=== PATIENT | male | born 1935 | race Caucasian/White ===

== ENCOUNTER → 2018-03-28 | Outpatient (CLI) | payer MEDICARE | END | disposition home or self-care (01) | LOC: SHCH 15:59 | PROVIDERS: ATTEND Internal Medicine Cardiovascular Disease | DX: R07.9 Chest pain, unspecified (principal); E11.9 Type 2 diabetes mellitus without complications; I10 Essential (primary) hypertension; E78.5 Hyperlipidemia, unspecified; Z87.891 Personal history of nicotine dependence; Z90.49 Acquired absence of other specified parts of digestive tract | CPT/HCPCS: 93306 ==

== ENCOUNTER → 2018-12-30 | Outpatient (CLI) | payer MEDICARE ==
--- NOTE | 2018-12-30 13:25 | NUR ---
MBSS COMPLETED. DEEP PENETRATION WITH NECTAR AND SHALLOW TRANSIENT PENETRATION WITH THIN LIQUIDS. RECOMMEND REGULAR TEXTURE, THIN LIQUIDS (SMALL CUP SIP); PILLS CRUSHED WITH APPLESAUCE. POCKET PRESENT IN POSTERIOR PHARYNGEAL WALL. PATIENT INFORMATION: Pt IS AN 83 YEAR OLD MALE REFERRED FOR A BEDSIDE DYSPHAGIA EVALUATION SECONDARY TO COMPLAINS OF DIFFICULTY SWALLOWING. Pt STATES THAT HE FEELS FOOD GET STUCK IN THROAT. Pt REPORTS THAT IN THE PAST HE HAD SIMILAR SYMPTOMS, BUT LOWER (POINTING TO THE ESOPHAGUS). Pt REPORTS THAT HE USUALLY DRINKS WATER AFTER MEALS AND HAS RECENTLY BEEN HAVING INCREASED DIFFICULTY WITH PILLS. IN ADDITION, Pt REPORTS INCREASED VOCAL HOARSENESS. Pt HAS A PAST MEDICAL HISTORY SIGNIFICANT FOR GERD, DMII, GASTRIC ULCERS, PROSTATE CANCER, HERNIA REPAIR, APPENDECTOMY. MBSS INTERPRETATION: Pt PRESENTS WITH MODERATE-SEVERE PHARYNGEAL DYSPHAGIA CAUSED BY DECREASED TONGUE BASE RETRACTION, DECREASED PRESSURE GENERATION WITHIN THE PHARYNX, POCKET IN POSTERIOR PHARYNGEAL WALL ([employer]-RADIOLOGIST CONFIRMATION), DELAYED PHARYNGEAL RESPONSE TIME EVIDENCED BY POCKETING IN POCKET IN POSTERIOR PHARYNGEAL WALL AT C6-C7 (CLEARED 50% OF BOLUS WITH LIQUID WAS AND DRY SWALLOW) WITH OVERFLOW INTO PHARYNX. RESULTING IN DEEP NON-TRANSIENT PENETRATION WITH NECTAR-THICK LIQUIDS AND TRANSIENT PENETRATION WITH THIN LIQUIDS VIA LARGE CUP SIP. OK WITH THIN LIQUIDS VIA SMALL CUP SIP. TRIALS: 1. TSP PUREED: POOLED IN POCKET IN POSTERIOR PHARYNGEAL WALL AT C6-C7. 2. CUP SIP THIN LIQUIDS: TRANSIENT PENETRATION; CLEARED 50% OF POOLED BOLUS 3. TSP PUDDING: POOLED IN POCKET IN POSTERIOR PHARYNGEAL WALL AT C6-C7. 4. TSP MIXED: POOLED IN POCKET IN POSTERIOR PHARYNGEAL WALL AT C6-C7. 5. CUP SIP THIN LIQUIDS: TRANSIENT PENETRATION; CLEARED 50% OF POOLED BOLUS 6. CUP SIP NECTAR-THICK LIQUIDS: DEEP NON-TRANSIENT PENETRATION 7. SMALL CUP SIP OF THIN LIQUIDS: GOOD. RECOMMENDATIONS: 1. REGULAR, THIN LIQUIDS: PILLS CRUSHED WITH APPLE SAUCE 2. COMPENSATORY STRATEGIES (STRICT): *SEATED AT 90 *SMALL BITES AND SIPS *NO STRAW *DRY SWALLOW AFTER LIQUID WASH *ALTERNATE BITES AND SIPS (STRICT) *REMAIN UPRIGHT 30 MINUTES AFTER THE MEAL *NO SCATTERED FOODS: NUTS, POPCORN, RICE, ETC (REVIEWED WITH Pt EXTENSIVELY) 3. ENT CONSULT SECONDARY TO POCKET IN POSTERIOR PHARYNGEAL WALL AT C6-C7 ([employer]) WINDOWS MIGRATION TECHNICIAN REVIEWED RESULTS AND RECOMMENDATIONS WITH Pt. WINDOWS MIGRATION TECHNICIAN EDUCATED Pt ON RISKS AND CONSEQUENCES OF ASPIRATION. WINDOWS MIGRATION TECHNICIAN EXPLAINED ANATOMY AND FINDINGS EXTENSIVELY. Pt PROVIDED WITH WRITTEN HANDOUT OF RESULTS AND RECOMMENDATIONS. PLEASE NOTE Pt'S BEST TEXTURE IS PUREED, WHICH WAS ALSO EXPLAINED. HE IS OK TO EAT SOLIDS, HOWEVER PUREED TEXTURES MAY BE WARRANTED AT A LATER TIME. HE VERBALIZED UNDERSTANDING AND COMPLIANCE WITH RECOMMENDATIONS. G-CODES SWALLOWING: [id number] Addendum: 12/30/18 at 1326 by COLIN PATTEN [facility] Amended: Links added.
== END | disposition home or self-care (01) ==
LOC: RAH 09:50
PROVIDERS: ATTEND Internal Medicine Gastroenterology
DX: R13.12 Dysphagia, oropharyngeal phase (principal); R63.3 Feeding difficulties
CPT/HCPCS: 74230; 92611; G8996; G8997; G8998

== ENCOUNTER 2019-03-30 09:38 | Emergency (ER) | payer MEDICARE | END 2019-03-30 13:35 | disposition home or self-care (01) | LOC: EDH 09:38 | DX: S52.502A Unspecified fracture of the lower end of left radius, initial encounter for closed fracture (principal); I10 Essential (primary) hypertension; E11.9 Type 2 diabetes mellitus without complications; E78.5 Hyperlipidemia, unspecified; Z87.891 Personal history of nicotine dependence; Z88.8 Allergy status to other drugs, medicaments and biological substances; W18.39XA Other fall on same level, initial encounter; Y93.89 Activity, other specified; Y92.89 Other specified places as the place of occurrence of the external cause; Y99.8 Other external cause status | CPT/HCPCS: 70450; 73110 ==

== ENCOUNTER → 2022-11-26 | Outpatient (CLI) | payer MEDICARE, OTHER | END | disposition home or self-care (01) | LOC: RAH 15:37 | PROVIDERS: ATTEND Family Medicine | DX: R05.9 Cough, unspecified (principal) | CPT/HCPCS: 71046 ==

== ENCOUNTER 2024-02-11 11:32 | Emergency (ER) | payer OTHER ==
[~2024-02-11] VITALS: Ht 193 cm; Wt 68.9 kg
[2024-02-11 11:33] VITALS: BP 130/83; PULSE 88; RESP 16
[2024-02-11] MEDS ORDERED: ONDANSETRON 4MG INJ IVP ONE (12:30)
[2024-02-11 13:02] LABS: BASOPHILS # (AUTO) 0.01 K/uL (0.00-0.20); BASOPHILS % (AUTO) 0.1 % (0.0-5.0); EOSINOPHILS # (AUTO) 0.07 K/uL (0.00-0.70); EOSINOPHILS % (AUTO) 0.6 % (0.0-8.0); HEMATOCRIT 34.7 % (42-54); IMMATURE GRANULOCYTE ABSOLUTE 0.08 K/uL (0-1); LYMPHOCYTES # (AUTO) 0.5 K/uL (1.0-4.8); LYMPHOCYTES % (AUTO) 4.1 % (21.0-51.0); MEAN CORPUSCULAR HEMOGLOBIN 26.9 pg (27.0-33.0); MEAN CORPUSCULAR HGB CONC 32.6 g/dL (32.0-36.0); MEAN CORPUSCULAR VOLUME 82.6 fL (79-99); MONOCYTES # (AUTO) 0.5 K/uL (0.1-1.0); MONOCYTES % (AUTO) 4.3 % (3.0-13.0); NEUTROPHILS # (AUTO) 10.2 K/uL (1.8-7.7); NEUTROPHILS % (AUTO) 90.2 % (40.0-77.0); PLATELET COUNT (AUTO) 300 K/uL (130-400); RED CELL DISTRIBUTION WIDTH 14.8 % (11.0-15.5); WHITE BLOOD COUNT (AUTO) 11.3 K/uL (4.8-10.8)
[2024-02-11 13:24] LABS: CREATININE 0.8 mg/dL (0.5-1.3); POTASSIUM 4.7 mmol/L (3.5-5.1)
[2024-02-11 13:28] LABS: ALBUMIN 2.7 g/dL (3.5-5.0); BILIRUBIN,TOTAL 0.6 mg/dL (0.2-1.0); TOTAL PROTEIN, SERUM 6.3 g/dL (6.0-8.3)
[2024-02-11] MEDS ORDERED: FLUC100T12 PO (14:34)
[2024-02-11] MEDS ORDERED: ONDA-243 PO (14:34)
[2024-02-11] MEDS: ONDANSETRON 4MG TABLET PO ONE (15:54)
[2024-02-15] MEDS ORDERED: MONT-39 PO (14:30)
[2024-02-15] MEDS ORDERED: LOSA50TA64 PO (14:30)
[2024-02-15] MEDS ORDERED: FISH1CAP27 PO (14:30)
[2024-02-15] MEDS ORDERED: MEMA10TA21 PO (14:30)
[2024-02-15] MEDS ORDERED: FLUT15.845 NS (14:30)
[2024-02-15] MEDS ORDERED: FLUT1AER IH (14:30)
[2024-02-15] MEDS ORDERED: OMEP40CA21 PO (14:30)
[2024-02-15] MEDS ORDERED: TAMS-1 PO (14:30)
[2024-02-15] MEDS ORDERED: GABA600T PO (14:30)
== END 2024-02-11 16:23 | disposition home or self-care (01) ==
LOC: EDH 11:32
DX: R11.2 Nausea with vomiting, unspecified (principal); T36.7X5A Adverse effect of antifungal antibiotics, systemically used, initial encounter; R51.9 Headache, unspecified; Y92.89 Other specified places as the place of occurrence of the external cause; E78.00 Pure hypercholesterolemia, unspecified; Z88.8 Allergy status to other drugs, medicaments and biological substances; Z91.018 Allergy to other foods; Z79.899 Other long term (current) drug therapy; Z90.49 Acquired absence of other specified parts of digestive tract; Z98.890 Other specified postprocedural states
CPT/HCPCS: 99284; 70450; 84484; 80053; 83690; 85025; 36415; 74176; 93005; Q0162